=== PATIENT | female | born 1940 | race Hispanic/Latino ===

== ENCOUNTER 2018-12-01 12:44 | Emergency (ER) | payer MEDICARE ==
[~2018-12-01] VITALS: Ht 152.4 cm; Wt 77.1 kg
--- NOTE | 2018-12-01 13:52 | Diagnostic Imaging Report ---
CT BRAIN WO HISTORY: Headache COMPARISON: None. Technique: Noncontrast axial scans were obtained from skull base to the vertex. Coronal and sagittal reconstructions obtained from the axial data. One or more of the following dose reduction techniques were used: Automated exposure control, adjustment of the mA and/or kV according to patient size, and/or utilization of iterative reconstruction technique. DISCUSSION: Scalp/Skull: Unremarkable. Brain sulci: Mildly prominent. Ventricles: Compensatory dilatation. Extra-axial spaces: No masses or fluid collections. Carotid siphon calcifications are present. Parenchyma: Mild bilateral deep white matter hypodensity is likely chronic microvascular ischemic change. Otherwise, no masses, hemorrhage, or large vascular territory acute infarct. Dural sinuses: No abnormal densities. Sellar/Suprasellar region: Intact. Skull base: Intact. Incidental findings: Both ocular lenses are thinned. There is mild sclerosis of the right sphenoid sinus mckee. IMPRESSION: 1. No acute intracranial abnormalities. 2. Mild supratentorial chronic microvascular ischemic change. Mild generalized cerebral volume loss. Signed by: Dr. Rodo Garza M.D. on 12/01/2018 1:49 PM
--- NOTE | 2018-12-01 14:08 | Diagnostic Imaging Report ---
Chest, 2 views, 12/01/2018. History: Cough. Comparison: None available. Findings: Exam is limited due to patient body habitus. The cardiomediastinal silhouette and pulmonary vasculature are within normal limits. The lungs are clear without evidence of consolidation or pleural effusion. There are no acute osseous or soft tissue abnormalities. Impression: No acute cardiopulmonary abnormality. Signed by: Magdiel Frye on 12/01/2018 2:05 PM
[2018-12-01 14:58] VITALS: BP 133/65
== END 2018-12-01 15:00 | disposition home or self-care (01) ==
LOC: ER 12:44
DX: R51 Headache (principal); J30.1 Allergic rhinitis due to pollen; R05 Cough; I10 Essential (primary) hypertension; E07.9 Disorder of thyroid, unspecified; Z82.49 Family history of ischemic heart disease and other diseases of the circulatory system
CPT/HCPCS: 70450; 71046; 99283